=== PATIENT | male | born 1950 | race Caucasian/White ===

== ENCOUNTER 2016-06-25 18:16 | Inpatient (IN) | payer MEDICARE ==
[~2016-06-25] VITALS: Ht 177.8 cm; Wt 124.8 kg
[2016-06-25] VITALS (12 sets, daily range): BP systolic 97–136; BP diastolic 52–94
--- NOTE | ~2016-06-25 | CON ---
[place], [place] REPORT OF CONSULTATION NAME: JUSTIN FOSTER JR UNIT #: [id number] ROOM: 521 DOCTOR: BERNICE BROWNLEE,GIANCARLO BIRTHDATE: [birth year] DOS: 06/26/2016 REASON FOR CONSULTATION: Atrial fibrillation. CONSULTING PHYSICIAN: Dr. Saleh. HISTORY OF PRESENT COMPLAINT: The patient is a 65-year-old with history of atrial fibrillation, hypertension, diabetes, came to the Emergency Room because for palpitations. He reportedly had atrial fibrillation with rapid ventricular rate. He had a few episodes of atrial fibrillation in the last 3 months, but that ____ with bearing down, his heart rate slowed but the current episode was lasting about 3 hours and finally came to the Emergency Room and was admitted to the hospital and Cardiology consulted for further recommendations. He took a second dose of Cardizem of 180 mg at home before coming to the Emergency Room. He is noted to have some chest pressure during his tachycardia, but in general, he denies any chest pain with activity and no PND, no orthopnea. No edema. No nausea, vomiting, or diarrhea. No headaches. No tingling, numbness or weakness. No blurred vision, no double vision. No hematemesis. No hematuria or dysuria. No musculoskeletal pains. REVIEW OF SYSTEMS: Review of the 8 systems negative except as mentioned above. PAST MEDICAL HISTORY: 1. Paroxysmal atrial fibrillation. 2. Hypertension. 3. Diabetes type 2. 4. Morbid obesity. 5. Acid reflux. 6. Renal stone. PAST SURGICAL HISTORY: 1. History of appendectomy. 2. History of a left knee replacement. 3. Cholecystectomy. SOCIAL HISTORY: Does not smoke or drink. No illicit drug abuse, but he did have history of remote smoking. FAMILY HISTORY: Father had a history of leukemia. Mother had diabetes and COPD. ALLERGIES: The patient is allergic to TAPE. HOME MEDICATIONS AND CURRENT MEDICATIONS: Reviewed. PHYSICAL EXAMINATION: VITAL SIGNS: Blood pressure 128/50, pulse 63, respiratory rate of 16. GENERAL: Alert, comfortable, in no acute distress. HEENT: Pupils are round and equal. No jaundice. Tongue was moist and pharynx was clear. [place], [place] REPORT OF CONSULTATION NAME: JUSTIN FOSTER JR UNIT #: [id number] ROOM: 521 DOCTOR: GIANCARLO QUEEN MD BIRTHDATE: [birth year] NECK: Supple. No distended neck veins. No carotid bruit. CHEST: Symmetrical, nontender. LUNGS: Clear to auscultation bilaterally. HEART: Regular rhythm. No S3. Grade 1/6 systolic murmur. No palpable thrills. ABDOMEN: Obese, nontender. Bowel sounds normal. EXTREMITIES: Showed 1+ edema with some chronic dermatitis changes. Distal pulses are palpable. SKIN: Warm and dry. No cyanosis, no clubbing. NEUROLOGIC: The patient is alert, oriented. No focal neurologic deficit. RECTAL: Deferred. GENITOURINARY: Deferred. REVIEW OF THE DIAGNOSTIC TESTS: EKG and labs reviewed. EKG showed atrial fibrillation with rapid ventricular rate. His pertinent labs include hemoglobin 12.7, creatinine 1.0, platelets 108,000. CK was unremarkable. IMPRESSION: 1. Atrial fibrillation with rapid ventricular rate, currently the patient is in sinus rhythm. 2. History of paroxysmal atrial fibrillation, on sotalol and Eliquis. 3. Hypertension. 4. Diabetes type 2. 5. Exogenous obesity. 6. Acid reflux. 7. Chest pain, atypical, ____ ruled out. RECOMMENDATIONS: He is feeling much better. Denies any chest pain or shortness of breath. No PND or orthopnea. His blood pressure and heart rates are stable. He can be discharged home from the cardiac standpoint and he will follow with his elder counselor, Dr. Chandler and discuss further medical therapy versus PVA for his paroxysmal atrial fibrillation. Risk factor modification for diet, exercise, weight loss discussed. The above treatment plan was discussed with the patient and his who is at bedside and all questions answered. Continue current cardiac medications including sotalol and Eliquis. [place], [place] REPORT OF CONSULTATION NAME: JUSTIN FOSTER JR UNIT #: [id number] ROOM: 521 DOCTOR: GIANCARLO QUEEN MD BIRTHDATE: [birth year] GIANCARLO QUEEN MD CM:CONSTR:REPORT OF CONSULTATION 21 06/27/16 0522 interface
[~2016-06-25 18:16] MED LIST: ALLERGY RELIEF10 MG; AMARYL4 MG PO; BETAPACE120 MG PO; BETAPACE80 MG PO; CARDIZEM CD180 MG PO; CETIRIZINE10 MG PO; CIPROFLOXACIN500 MG PO; COLACE100 MG PO; COUMADIN5 M2 PO; DULCOLAX10 MG R; FLOMAX0.4 MG PO; HYDROCODONE BIT1 T11 PO; JANUMET 1000 MG1 TA1 PO; JANUMET XR 50-1 EAC1 PO; LANTUS100 U/ML SC; LISINOPRIL HCTZ PO; LISINOPRIL5 MG PO; LOVENOX40 MG/0.4 PO; MACROBID100 M1 PO; MEDROL DOSEPAK4 MG PO; METOPROLOL SR25 MG; MOM30 M1 PO; OMEPRAZOLE20 MG PO; PERCOCET 325 MG1 TA2 PO; PHENERGAN25 M3 PO; PRAVACHOL20 MG PO; PREDNICOT20 MG PO; RANITIDINE300 MG PO; SOTALOL HCL AF80 MG PO; TAMSULOSIN HCL0.4 MG PO; TRAMADOL HCL50 MG PO; TRIPLE FLEX; TYLENOL325 M2 PO; ULTRAM50 MG PO; VICODIN 5/500 505 MG PO; VISTARIL25 M1 PO; VOLTAREN50 M1 PO; VOLTAREN75 MG PO; XARELTO10; ZOFRAN ODT4 MG SL; Zofran4 MG PO
[2016-06-25] MEDS ORDERED: METFORMIN1000 MG PO (18:30)
[2016-06-25] MEDS ORDERED: ELIQUIS5 M1 PO (18:58)
[2016-06-25 19:03] LABS: BASO % 0.5 % (0.0-1.0); EOS # 0.3 10*3/uL (0.0-0.4); EOS % 3.6 % (1.0-4.0); HEMATOCRIT 37.4 % (42.0-52.0); LYMPH # 1.9 10*3/uL (1.3-4.4); LYMPH % 21.4 % (27.0-41.0); MEAN CELL VOLUME 93.5 fl (80.0-94.0); MEAN CORPUSCULAR HGB 32.5 pg (27.0-31.0); MEAN CORPUSCULAR HGB CONC 34.8 g/dl (33.0-37.0); MEAN PLATELET VOLUME 10.2 fl (9.6-12.3); MONO # 0.7 10*3/uL (0.1-1.0); MONO % 8.3 % (3.0-9.0); NEUT # 5.7 10*3/uL (2.3-7.9); NEUT % 65.7 % (47.0-73.0); PLATELET COUNT AUTOMATED 96 10*3/uL (130-400); RED CELL DISTRI WIDTH 13.1 % (0-14.5); WHITE BLOOD COUNT 8.7 10*3/uL (4.8-10.8)
[2016-06-25 19:23] LABS: BUN 20 mg/dl (7-24); CARBON DIOXIDE 23 mmol/L (21-32); CHLORIDE 106 mmol/L (98-107); EST GLOM FILT AFRICAN AMERICAN > 60 ml/min; GLUCOSE 170 mg/dL (65-99); POTASSIUM 3.7 mmol/L (3.5-5.1); SODIUM 142 mmol/L (136-145)
[2016-06-25 19:24] LABS: TROPONIN I < 0.015 ng/ml (<0.045)
[2016-06-26] VITALS: BP 122/77
[2016-06-26 00:47] LABS: CPK 49 U/L (39-308)
[2016-06-26 00:48] LABS: TROPONIN I < 0.015 ng/ml (<0.045)
[2016-06-26 01:54] VITALS: BP 120/64
[2016-06-26 04:00] VITALS: BP 116/44
[2016-06-26 06:34] LABS: BASO # 0.1 10*3/uL (0.0-0.1); BASO % 0.7 % (0.0-1.0); EOS # 0.3 10*3/uL (0.0-0.4); EOS % 4.5 % (1.0-4.0); HEMATOCRIT 36.9 % (42.0-52.0); HEMOGLOBIN 12.7 g/dl (14.0-18.0); LYMPH # 1.8 10*3/uL (1.3-4.4); LYMPH % 24.3 % (27.0-41.0); MEAN CELL VOLUME 93.4 fl (80.0-94.0); MEAN CORPUSCULAR HGB 32.2 pg (27.0-31.0); MEAN CORPUSCULAR HGB CONC 34.4 g/dl (33.0-37.0); MEAN PLATELET VOLUME 10.5 fl (9.6-12.3); MONO # 0.7 10*3/uL (0.1-1.0); MONO % 9.9 % (3.0-9.0); NEUT # 4.4 10*3/uL (2.3-7.9); NEUT % 60.2 % (47.0-73.0); PLATELET COUNT AUTOMATED 108 10*3/uL (130-400); RED BLOOD COUNT 3.95 10*6/uL (4.50-5.90); RED CELL DISTRI WIDTH 12.9 % (0-14.5); WHITE BLOOD COUNT 7.3 10*3/uL (4.8-10.8)
[2016-06-26 06:41] LABS: CKMB 0.9 ng/ml (0.5-3.6); CPK 45 U/L (39-308)
[2016-06-26 06:47] LABS: HEMOGLOBIN A1c 7.5 % (4.8-5.6); TROPONIN I < 0.015 ng/ml (<0.045)
[2016-06-26 07:07] LABS: BUN 20 mg/dl (7-24); CARBON DIOXIDE 24 mmol/L (21-32); CHLORIDE 105 mmol/L (98-107); CHOLESTEROL 120 mg/dL (<200); EST GLOM FILT AFRICAN AMERICAN > 60 ml/min; GLUCOSE 169 mg/dL (65-99); POTASSIUM 3.6 mmol/L (3.5-5.1); SODIUM 142 mmol/L (136-145); TRIGLYCERIDES 244 mg/dl (<150); VLDL CHOLESTEROL 49 mg/dL (6-40)
[2016-06-26 07:16] LABS: FREE T4 0.84 ng/dl (0.76-1.46); HDL CHOLESTEROL 35 mg/dl (40-60); LDL CHOLESTEROL 36 mg/dL (9-159)
[2016-06-26 07:44] LABS: FOLIC ACID 13.48 ng/mL (>5.38)
[2016-06-26 08:00] VITALS: BP 112/58
[2016-06-26 12:00] VITALS: BP 128/50
[2016-06-26 12:28] LABS: CKMB < 0.5 ng/ml (0.5-3.6); CPK 39 U/L (39-308); TROPONIN I < 0.015 ng/ml (<0.045)
== END 2016-06-26 15:02 | disposition home or self-care (01) | DRG 309 ==
LOC: ED 18:16 → EDHOLD 21:18 → 5E 21:18
PROVIDERS: Emergency Medicine; Internal Medicine
DX: I48.0 Paroxysmal atrial fibrillation (principal); D61.818 Other pancytopenia; E11.65 Type 2 diabetes mellitus with hyperglycemia; E66.01 Morbid (severe) obesity due to excess calories; I10 Essential (primary) hypertension; K21.9 Gastro-esophageal reflux disease without esophagitis; E78.5 Hyperlipidemia, unspecified; Z96.652 Presence of left artificial knee joint; M19.90 Unspecified osteoarthritis, unspecified site; Z87.442 Personal history of urinary calculi; Z80.6 Family history of leukemia; Z83.3 Family history of diabetes mellitus; Z83.6 Family history of other diseases of the respiratory system; Z82.49 Family history of ischemic heart disease and other diseases of the circulatory system; Z90.49 Acquired absence of other specified parts of digestive tract; Z91.048 Other nonmedicinal substance allergy status; Z79.84 Long term (current) use of oral hypoglycemic drugs; Z79.899 Other long term (current) drug therapy; Z87.891 Personal history of nicotine dependence; Z68.39 Body mass index [BMI] 39.0-39.9, adult

== ENCOUNTER 2019-03-26 00:29 | Emergency (ER) | payer MEDICARE ==
[~2019-03-26] VITALS: Ht 177.8 cm; Wt 122.0 kg
[~2019-03-26 00:29] MED LIST changes: +ELIQUIS5 M1 PO; +METFORMIN1000 MG PO
[2019-03-26 00:53] LABS: BASO % 0.5 % (0.0-1.0); EOS # 0.2 10*3/uL (0.0-0.4); EOS % 3.5 % (1.0-4.0); HEMATOCRIT 30.5 % (42.0-52.0); HEMOGLOBIN 10.1 g/dl (14.0-18.0); LYMPH # 1.2 10*3/uL (1.3-4.4); LYMPH % 18.6 % (27.0-41.0); MEAN CELL VOLUME 99.7 fl (80.0-94.0); MEAN CORPUSCULAR HGB CONC 33.1 g/dl (33.0-37.0); MEAN PLATELET VOLUME 10.2 fl (9.6-12.3); MONO # 0.6 10*3/uL (0.1-1.0); MONO % 8.8 % (3.0-9.0); NEUT # 4.2 10*3/uL (2.3-7.9); NEUT % 68.1 % (47.0-73.0); PLATELET COUNT AUTOMATED 90 10*3/uL (130-400); RED BLOOD COUNT 3.06 10*6/uL (4.50-5.90); RED CELL DISTRI WIDTH 12.9 % (0-14.5); WHITE BLOOD COUNT 6.2 10*3/uL (4.8-10.8)
[2019-03-26 01:04] LABS: ACT PARTIAL THROMBO TIME 26.1 SECONDS (20.0-32.1)
[2019-03-26 01:09] LABS: ALBUMIN 3.7 gm/dl (3.1-4.5); ALKALINE PHOSPHATASE 81 U/L (45-117); BUN 24 mg/dl (7-24); CHLORIDE 111 mmol/L (98-107); CREATININE 1.69 mg/dL (0.70-1.30); POTASSIUM 4.3 mmol/L (3.5-5.1); SGOT/AST 21 IU/L (3-35); SGPT/ALT 34 U/L (12-78); SODIUM 142 mmol/L (136-145); TOTAL PROTEIN 7.3 gm/dL (6.4-8.2)
[2019-03-26 01:10] LABS: TROPONIN I < 0.015 ng/ml (<0.045)
[2019-03-26 03:38] VITALS: BP 118/73
== END 2019-03-26 04:54 | disposition home or self-care (01) ==
LOC: ED 00:29
PROVIDERS: Emergency Medicine Emergency Medical Services
DX: I48.20 Chronic atrial fibrillation, unspecified (principal); K21.9 Gastro-esophageal reflux disease without esophagitis; E78.00 Pure hypercholesterolemia, unspecified; I25.10 Atherosclerotic heart disease of native coronary artery without angina pectoris; E11.9 Type 2 diabetes mellitus without complications; I10 Essential (primary) hypertension; E66.9 Obesity, unspecified; Z91.048 Other nonmedicinal substance allergy status; Z79.899 Other long term (current) drug therapy; Z79.4 Long term (current) use of insulin; Z87.442 Personal history of urinary calculi; Z87.891 Personal history of nicotine dependence; Z90.49 Acquired absence of other specified parts of digestive tract

== ENCOUNTER 2019-12-09 04:56 | Emergency (ER) | payer MEDICARE ==
[~2019-12-09] VITALS: Ht 177.8 cm; Wt 122.0 kg
[2019-12-09 05:29] LABS: INTERNATIONAL NORM RATIO 1.1 (2.0-3.5)
[2019-12-09 05:35] LABS: ALBUMIN 3.4 gm/dl (3.1-4.5); ALKALINE PHOSPHATASE 50 U/L (45-117); BUN 26 mg/dl (7-24); CHLORIDE 110 mmol/L (98-107); CREATININE 1.41 mg/dL (0.70-1.30); SGOT/AST 24 IU/L (3-35); SGPT/ALT 30 U/L (12-78); SODIUM 141 mmol/L (136-145)
[2019-12-09 05:36] LABS: TROPONIN I < 0.015 ng/ml (<0.045)
[2019-12-09 05:41] LABS: BASO % 0.4 % (0.0-1.0); EOS # 0.3 10*3/uL (0.0-0.4); EOS % 4.6 % (1.0-4.0); HEMATOCRIT 32.4 % (42.0-52.0); LYMPH % 17.7 % (27.0-41.0); MEAN CELL VOLUME 95.9 fl (80.0-94.0); MEAN CORPUSCULAR HGB CONC 33.3 g/dl (33.0-37.0); MEAN PLATELET VOLUME 10.3 fl (9.6-12.3); MONO # 0.6 10*3/uL (0.1-1.0); MONO % 10.3 % (3.0-9.0); NEUT # 3.8 10*3/uL (2.3-7.9); NEUT % 66.5 % (47.0-73.0); PLATELET COUNT AUTOMATED 91 10*3/uL (130-400); RED BLOOD COUNT 3.38 10*6/uL (4.50-5.90); RED CELL DISTRI WIDTH 13.3 % (0-14.5); WHITE BLOOD COUNT 5.7 10*3/uL (4.8-10.8)
[2019-12-09 06:13] VITALS: BP 122/50
== END 2019-12-09 09:51 | disposition home or self-care (01) ==
LOC: ED 04:56
PROVIDERS: Emergency Medicine Emergency Medical Services
DX: R07.89 Other chest pain (principal); M79.622 Pain in left upper arm; I48.91 Unspecified atrial fibrillation; I25.10 Atherosclerotic heart disease of native coronary artery without angina pectoris; K21.9 Gastro-esophageal reflux disease without esophagitis; E78.5 Hyperlipidemia, unspecified; I10 Essential (primary) hypertension; E11.9 Type 2 diabetes mellitus without complications; Z87.891 Personal history of nicotine dependence; Z79.899 Other long term (current) drug therapy

== ENCOUNTER 2020-06-09 09:02 | Emergency (ER) | payer MEDICARE ==
[~2020-06-09] VITALS: Wt 122.9 kg
[2020-06-09 09:10] VITALS: BP 159/57
[2020-06-09 09:35] LABS: BASO % 0.3 % (0.0-1.0); EOS # 0.3 10*3/uL (0.0-0.4); EOS % 3.5 % (1.0-4.0); HEMATOCRIT 32.7 % (42.0-52.0); LYMPH # 0.7 10*3/uL (1.3-4.4); LYMPH % 9.5 % (27.0-41.0); MEAN PLATELET VOLUME 9.8 fl (9.6-12.3); MONO # 0.6 10*3/uL (0.1-1.0); MONO % 8.5 % (3.0-9.0); NEUT # 5.6 10*3/uL (2.3-7.9); NEUT % 77.8 % (47.0-73.0); PLATELET COUNT AUTOMATED 84 10*3/uL (130-400); RED BLOOD COUNT 3.37 10*6/uL (4.50-5.90); RED CELL DISTRI WIDTH 13.8 % (0-14.5); WHITE BLOOD COUNT 7.2 10*3/uL (4.8-10.8)
[2020-06-09 09:47] LABS: ACT PARTIAL THROMBO TIME 28.4 SECONDS (20.0-32.1); INTERNATIONAL NORM RATIO 1.1 (2.0-3.5)
[2020-06-09 09:50] LABS: ALBUMIN 3.5 gm/dl (3.1-4.5); CREATININE 3.6 mg/dL (0.70-1.30); POTASSIUM 4.5 mmol/L (3.5-5.1); TOTAL PROTEIN 7.2 gm/dL (6.4-8.2)
[2020-06-09] MEDS ORDERED: MIRALAX POWDER17 G1 PO (10:13)
[2020-06-09 12:23] LABS: BILIRUBIN Negative (Negative); BLOOD 3+ (Negative); CLARITY Clear (Clear); COLOR Yellow (Yellow); GLUCOSE Negative (Negative); KETONE Trace (Negative); LEUKO ESTERASE 1+ (Negative); NITRITE Negative (Negative); SPECIFIC GRAVITY 1.015 (1.001-1.030); UROBILINOGEN 0.2 E.U./dl (0.0-1.0)
[2020-06-09 12:31] LABS: BACTERIA 2+; MUCOUS 1+; RBC 51-100 rbc/hpf (0-2); WBC 31-40 wbc/hpf (0-5)
== END 2020-06-09 13:00 | disposition short-term general hospital (02) ==
LOC: ED 09:02
PROVIDERS: Emergency Medicine
DX: N17.9 Acute kidney failure, unspecified (principal); K59.03 Drug induced constipation; T40.605A Adverse effect of unspecified narcotics, initial encounter; E78.00 Pure hypercholesterolemia, unspecified; H11.31 Conjunctival hemorrhage, right eye; I48.91 Unspecified atrial fibrillation; I25.10 Atherosclerotic heart disease of native coronary artery without angina pectoris; E11.9 Type 2 diabetes mellitus without complications; M19.90 Unspecified osteoarthritis, unspecified site; I10 Essential (primary) hypertension; K21.9 Gastro-esophageal reflux disease without esophagitis; E78.5 Hyperlipidemia, unspecified; Z95.0 Presence of cardiac pacemaker; Z91.048 Other nonmedicinal substance allergy status; Z79.899 Other long term (current) drug therapy; Z79.4 Long term (current) use of insulin; Z87.442 Personal history of urinary calculi; Z90.49 Acquired absence of other specified parts of digestive tract; Z96.652 Presence of left artificial knee joint; Z87.891 Personal history of nicotine dependence; Y92.89 Other specified places as the place of occurrence of the external cause

== ENCOUNTER 2021-07-26 11:42 | Emergency (ER) | payer MEDICARE ==
[~2021-07-26] VITALS: Ht 177.8 cm; Wt 122.0 kg
[~2021-07-26 11:42] MED LIST changes: +ALLOPURINOL300 MG PO; +FEROSUL325 M1 PO; +LANTUS SOL100 UNIT/1 SC; -LANTUS100 U/ML SC; +MECLIZINE HCL25 M2 PO; +METFORMIN HYDR500 MG PO; -METFORMIN1000 MG PO; +METOPROLOL SUCC50 M1 PO; +MIRALAX POWDER17 G1 PO; +NOVOLOG10 ML IV; +POTASSIUM CITR10 MEQ PO; -PRAVACHOL20 MG PO; +PRAVASTATIN SOD40 MG PO
[2021-07-26 12:10] LABS: BASO % 0.3 % (0.0-1.0); EOS # 0.3 10*3/uL (0.0-0.4); EOS % 3.8 % (1.0-4.0); HEMATOCRIT 31.8 % (42.0-52.0); LYMPH # 0.8 10*3/uL (1.3-4.4); LYMPH % 11.7 % (27.0-41.0); MEAN CORPUSCULAR HGB 32.3 pg (27.0-31.0); MEAN CORPUSCULAR HGB CONC 33.3 g/dl (33.0-37.0); MONO # 0.7 10*3/uL (0.1-1.0); MONO % 9.1 % (3.0-9.0); NEUT # 5.4 10*3/uL (2.3-7.9); NEUT % 74.8 % (47.0-73.0); PLATELET COUNT AUTOMATED 88 10*3/uL (130-400); RED BLOOD COUNT 3.28 10*6/uL (4.50-5.90); RED CELL DISTRI WIDTH 13.6 % (0-14.5); WHITE BLOOD COUNT 7.2 10*3/uL (4.8-10.8)
[2021-07-26 12:26] LABS: ACT PARTIAL THROMBO TIME 24.9 SECONDS (20.0-32.1); INTERNATIONAL NORM RATIO 1.1 (2.0-3.5)
[2021-07-26 12:28] LABS: CREATININE 1.55 mg/dL (0.70-1.30); POTASSIUM 3.9 mmol/L (3.5-5.1); TOTAL PROTEIN 6.9 gm/dL (6.4-8.2)
[2021-07-26 14:09] LABS: BILIRUBIN Negative (Negative); BLOOD Negative (Negative); CLARITY Clear (Clear); COLOR Yellow (Yellow); GLUCOSE Negative (Negative); KETONE Trace (Negative); LEUKO ESTERASE 1+ (Negative); NITRITE Negative (Negative); SPECIFIC GRAVITY 1.015 (1.001-1.030)
[2021-07-26 14:16] LABS: MUCOUS TRACE; WBC 16-20 wbc/hpf (0-5)
[2021-07-26 15:30] VITALS: BP 140/89
== END 2021-07-26 16:08 | disposition home or self-care (01) ==
LOC: ED 11:42
PROVIDERS: Emergency Medicine
DX: E11.649 Type 2 diabetes mellitus with hypoglycemia without coma (principal); I48.91 Unspecified atrial fibrillation; I25.10 Atherosclerotic heart disease of native coronary artery without angina pectoris; K21.9 Gastro-esophageal reflux disease without esophagitis; E78.5 Hyperlipidemia, unspecified; I12.9 Hypertensive chronic kidney disease with stage 1 through stage 4 chronic kidney disease, or unspecified chronic kidney disease; E11.22 Type 2 diabetes mellitus with diabetic chronic kidney disease; N18.30 Chronic kidney disease, stage 3 unspecified; Z90.49 Acquired absence of other specified parts of digestive tract; Z87.442 Personal history of urinary calculi; Z79.899 Other long term (current) drug therapy; Z87.891 Personal history of nicotine dependence

== ENCOUNTER 2021-07-27 17:33 | Emergency (ER) | payer MEDICARE ==
[2021-07-27 17:42] VITALS: BP 156/55
[2021-07-27 18:32] LABS: BASO % 0.3 % (0.0-1.0); EOS # 0.2 10*3/uL (0.0-0.4); EOS % 3.2 % (1.0-4.0); HEMATOCRIT 32.1 % (42.0-52.0); LYMPH # 1.2 10*3/uL (1.3-4.4); LYMPH % 18.7 % (27.0-41.0); MEAN CELL VOLUME 97.6 fl (80.0-94.0); MEAN CORPUSCULAR HGB 33.1 pg (27.0-31.0); MEAN PLATELET VOLUME 10.2 fl (9.6-12.3); MONO # 0.5 10*3/uL (0.1-1.0); MONO % 7.9 % (3.0-9.0); NEUT # 4.3 10*3/uL (2.3-7.9); NEUT % 69.6 % (47.0-73.0); PLATELET COUNT AUTOMATED 92 10*3/uL (130-400); RED BLOOD COUNT 3.29 10*6/uL (4.50-5.90); RED CELL DISTRI WIDTH 13.8 % (0-14.5); WHITE BLOOD COUNT 6.2 10*3/uL (4.8-10.8)
[2021-07-27 18:40] LABS: BILIRUBIN Negative (Negative); BLOOD Trace-Lysed (Negative); CLARITY Clear (Clear); COLOR Yellow (Yellow); GLUCOSE Negative (Negative); KETONE Trace (Negative); LEUKO ESTERASE 2+ (Negative); NITRITE Negative (Negative); SPECIFIC GRAVITY 1.015 (1.001-1.030)
[2021-07-27 18:43] LABS: CREATININE 1.86 mg/dL (0.70-1.30); POTASSIUM 4.5 mmol/L (3.5-5.1)
[2021-07-27 18:50] LABS: BACTERIA 1+; WBC 31-40 wbc/hpf (0-5)
== END 2021-07-27 19:38 | disposition home or self-care (01) ==
LOC: ED 17:33
PROVIDERS: Emergency Medicine
DX: R78.81 Bacteremia (principal); E11.22 Type 2 diabetes mellitus with diabetic chronic kidney disease; I12.9 Hypertensive chronic kidney disease with stage 1 through stage 4 chronic kidney disease, or unspecified chronic kidney disease; N18.30 Chronic kidney disease, stage 3 unspecified; I48.91 Unspecified atrial fibrillation; I25.10 Atherosclerotic heart disease of native coronary artery without angina pectoris; K21.9 Gastro-esophageal reflux disease without esophagitis; E78.5 Hyperlipidemia, unspecified; Z87.891 Personal history of nicotine dependence; Z90.49 Acquired absence of other specified parts of digestive tract; Z98.890 Other specified postprocedural states; Z79.899 Other long term (current) drug therapy

== ENCOUNTER 2021-07-30 16:48 | Emergency (ER) | payer MEDICARE ==
[2021-07-30 16:52] VITALS: BP 149/58
[2021-07-30 17:13] LABS: BASO % 0.6 % (0.0-1.0); EOS # 0.2 10*3/uL (0.0-0.4); EOS % 4.7 % (1.0-4.0); LYMPH # 0.9 10*3/uL (1.3-4.4); LYMPH % 18.4 % (27.0-41.0); MEAN CELL VOLUME 97.9 fl (80.0-94.0); MEAN CORPUSCULAR HGB 32.6 pg (27.0-31.0); MEAN CORPUSCULAR HGB CONC 33.3 g/dl (33.0-37.0); MEAN PLATELET VOLUME 10.1 fl (9.6-12.3); MONO # 0.3 10*3/uL (0.1-1.0); NEUT # 3.4 10*3/uL (2.3-7.9); NEUT % 68.9 % (47.0-73.0); PLATELET COUNT AUTOMATED 87 10*3/uL (130-400); RED BLOOD COUNT 3.37 10*6/uL (4.50-5.90); RED CELL DISTRI WIDTH 13.7 % (0-14.5); WHITE BLOOD COUNT 4.9 10*3/uL (4.8-10.8)
[2021-07-30 17:24] LABS: ACT PARTIAL THROMBO TIME 27.6 SECONDS (20.0-32.1)
[2021-07-30 17:29] LABS: CREATININE 1.75 mg/dL (0.70-1.30); POTASSIUM 4.4 mmol/L (3.5-5.1); TOTAL PROTEIN 7.5 gm/dL (6.4-8.2)
[2021-07-30 18:12] LABS: BILIRUBIN Negative (Negative); BLOOD Negative (Negative); CLARITY Clear (Clear); COLOR Yellow (Yellow); GLUCOSE Trace (Negative); KETONE Negative (Negative); LEUKO ESTERASE Trace (Negative); NITRITE Negative (Negative); SPECIFIC GRAVITY 1.015 (1.001-1.030); UROBILINOGEN 0.2 E.U./dl (0.0-1.0)
[2021-07-30 18:21] LABS: BACTERIA 1+; EPITHELIAL CELLS 0-2; HYALINE CAST 0-2; RBC 0-2 rbc/hpf (0-2)
[2021-07-30] MEDS ORDERED: CIPRO250 MG PO (18:35)
== END 2021-07-30 18:47 | disposition home or self-care (01) ==
LOC: ED 16:48
PROVIDERS: Emergency Medicine
DX: N39.0 Urinary tract infection, site not specified (principal)

== ENCOUNTER → 2021-09-03 | Outpatient (CLI) | payer MEDICARE ==
[~2021-09-03] MED LIST changes: +CIPRO250 MG PO
== END | disposition home or self-care (01) ==
LOC: EDSTATUS 00:27 → RESCLI 00:27
PROVIDERS: ATTEND Emergency Medicine
DX: I10 Essential (primary) hypertension (principal); E78.5 Hyperlipidemia, unspecified; E13.9 Other specified diabetes mellitus without complications; K21.9 Gastro-esophageal reflux disease without esophagitis; N40.0 Benign prostatic hyperplasia without lower urinary tract symptoms; M10.9 Gout, unspecified; I48.21 Permanent atrial fibrillation; R42 Dizziness and giddiness; E87.6 Hypokalemia; Z79.2 Long term (current) use of antibiotics; Z79.899 Other long term (current) drug therapy

== ENCOUNTER 2022-12-05 23:29 | Emergency (ER) | payer MEDICARE ==
[~2022-12-05] VITALS: Ht 177.8 cm; Wt 117.9 kg
[2022-12-05 23:46] VITALS: BP 125/58
[2022-12-06 00:48] LABS: BASO % 0.4 % (0.0-1.0); EOS # 0.3 10*3/uL (0.0-0.4); HEMATOCRIT 31.8 % (42.0-52.0); LYMPH # 1.1 10*3/uL (1.3-4.4); LYMPH % 19.1 % (27.0-41.0); MEAN CELL VOLUME 103.6 fl (80.0-94.0); MEAN CORPUSCULAR HGB 34.5 pg (27.0-31.0); MEAN CORPUSCULAR HGB CONC 33.3 g/dl (33.0-37.0); MEAN PLATELET VOLUME 10.2 fl (9.6-12.3); MONO # 0.5 10*3/uL (0.1-1.0); MONO % 9.1 % (3.0-9.0); NEUT # 3.6 10*3/uL (2.3-7.9); NEUT % 64.9 % (47.0-73.0); PLATELET COUNT AUTOMATED 70 10*3/uL (130-400); RED BLOOD COUNT 3.07 10*6/uL (4.50-5.90); RED CELL DISTRI WIDTH 14.6 % (0-14.5); WHITE BLOOD COUNT 5.5 10*3/uL (4.8-10.8)
[2022-12-06 00:54] LABS: ACT PARTIAL THROMBO TIME 27.7 SECONDS (20.0-32.1); INTERNATIONAL NORM RATIO 1.1 (2.0-3.5)
[2022-12-06 01:04] LABS: ALKALINE PHOSPHATASE 57 U/L (46-116); BUN 36 mg/dl (9-23); CHLORIDE 111 mmol/L (98-107); LIPASE 40 U/L (12-53); POTASSIUM 4.7 mmol/L (3.4-5.1); SGPT/ALT 19 U/L (10-49); TOTAL PROTEIN 6.4 gm/dL (6.0-8.0)
== END 2022-12-06 02:55 | disposition home or self-care (01) ==
LOC: ED 23:29
PROVIDERS: Internal Medicine
DX: S20.311A Abrasion of right front wall of thorax, initial encounter (principal); S00.81XA Abrasion of other part of head, initial encounter; R07.81 Pleurodynia; I25.10 Atherosclerotic heart disease of native coronary artery without angina pectoris; I10 Essential (primary) hypertension; K21.9 Gastro-esophageal reflux disease without esophagitis; I48.91 Unspecified atrial fibrillation; E11.9 Type 2 diabetes mellitus without complications; Z87.442 Personal history of urinary calculi; E78.00 Pure hypercholesterolemia, unspecified; Z88.8 Allergy status to other drugs, medicaments and biological substances; Z90.49 Acquired absence of other specified parts of digestive tract; Z96.652 Presence of left artificial knee joint; Z95.5 Presence of coronary angioplasty implant and graft; Z98.890 Other specified postprocedural states; Z87.891 Personal history of nicotine dependence; W01.198A Fall on same level from slipping, tripping and stumbling with subsequent striking against other object, initial encounter; Y93.01 Activity, walking, marching and hiking; Y92.89 Other specified places as the place of occurrence of the external cause; Y99.8 Other external cause status

== ENCOUNTER → 2023-04-29 | Outpatient (CLI) | payer MEDICARE | END | disposition home or self-care (01) | LOC: RESCLI 01:21 | PROVIDERS: ATTEND Student in an Organized Health Care Education/Training Program | DX: E13.9 Other specified diabetes mellitus without complications (principal); N40.0 Benign prostatic hyperplasia without lower urinary tract symptoms; I10 Essential (primary) hypertension; E78.5 Hyperlipidemia, unspecified; M10.9 Gout, unspecified; I48.21 Permanent atrial fibrillation; E87.6 Hypokalemia; K21.9 Gastro-esophageal reflux disease without esophagitis; Z79.84 Long term (current) use of oral hypoglycemic drugs; Z79.899 Other long term (current) drug therapy; Z98.890 Other specified postprocedural states; Z91.048 Other nonmedicinal substance allergy status ==

== ENCOUNTER 2024-04-11 19:54 | Emergency (ER) | payer OTHER ==
[~2024-04-11] VITALS: Ht 177.8 cm; Wt 122.5 kg
[2024-04-11 20:09] VITALS: BP 141/58
[2024-04-11] MEDS ORDERED: Cyclobenzaprine Hydrochlorid 10 MG TAB PO ONE ×2 (20:40→22:45)
[2024-04-11] MEDS ORDERED: Acetaminophen/Oxycodone 5 MG/325 MG TABLET PO ONE ×2 (20:40→22:45)
[2024-04-11 20:58] LABS: BILIRUBIN Negative (Negative); BLOOD Negative (Negative); CLARITY Clear (Clear); COLOR Yellow (Yellow); GLUCOSE Negative (Negative); KETONE Trace (Negative); LEUKO ESTERASE Negative (Negative); NITRITE Negative (Negative)
== END 2024-04-11 22:59 | disposition home or self-care (01) ==
LOC: ED 19:54
PROVIDERS: Nurse Practitioner
DX: S39.012A Strain of muscle, fascia and tendon of lower back, initial encounter (principal); E11.9 Type 2 diabetes mellitus without complications; Z91.048 Other nonmedicinal substance allergy status; Z79.899 Other long term (current) drug therapy; Z79.4 Long term (current) use of insulin; Z87.442 Personal history of urinary calculi; Z90.49 Acquired absence of other specified parts of digestive tract; Z96.652 Presence of left artificial knee joint; Z87.891 Personal history of nicotine dependence; X50.1XXA Overexertion from prolonged static or awkward postures, initial encounter; Y93.89 Activity, other specified; Y92.89 Other specified places as the place of occurrence of the external cause; Y99.8 Other external cause status